=== PATIENT | female | born 1995 | race Two or more races ===

== ENCOUNTER 2023-01-29 00:04 | Emergency (ER) | payer SELFPAY ==
[~2023-01-29] VITALS: Ht 157.5 cm; Wt 65.0 kg
[2023-01-29] MEDS ORDERED: IBUPROFEN 600 MG TABLET PO ONE (00:45)
[2023-01-29 04:54] VITALS: BP 105/62
== END 2023-01-29 04:55 | disposition home or self-care (01) ==
LOC: EMS 00:06
DX: S62.609A Fracture of unspecified phalanx of unspecified finger, initial encounter for closed fracture (principal); W18.30XA Fall on same level, unspecified, initial encounter; Y93.89 Activity, other specified; Y92.89 Other specified places as the place of occurrence of the external cause; Y99.8 Other external cause status
CPT/HCPCS: 99284; 73090-TC; 73130-TC; Z7502; Z7610